=== PATIENT | female | born 1940 | race Caucasian/White ===

== ENCOUNTER 2019-01-26 10:04 | Emergency (ER) | payer OTHER ==
[2019-01-26 10:11] VITALS: BP 149/74; PULSE 65; TEMP 98; BMI 25.1
--- NOTE | 2019-01-26 11:03 | PDOC ---
History of Present Illness - General Chief Complaint: Injury Stated Complaint: LT LEG INJURY / POSSIBLE FALL Time Seen by Provider: 01/26/19 10:49 - History of Present Illness Initial Comments: 01/26/19 11:00 78-year-old female with a past medical history significant for hypertension reports the emergency room for left knee pain. She states she had a fall down some steps about 20 days ago since that time she's had consistent left knee pain. Past History - Past Medical History Allergies/Adverse Reactions: Allergies Allergy/AdvReac Type Severity Reaction Status Date / Time No Known Allergies Allergy Verified 01/26/19 10:10 Home Medications: Ambulatory Orders Losartan 50Mg/Hctz 12.5MG [Hyzaar] 1 tab PO DAILY 02/18/13 COPD: No HTN: Yes Hypercholesterolemia: Yes - Surgical History Appendectomy: Yes Cholecystectomy: Yes - Suicide/Smoking/Psychosocial Hx Smoking Status: No Smoking History: Never smoked Number of Cigarettes Smoked Daily: 0 Information on smoking cessation initiated: No Hx Alcohol Use: No Drug/Substance Use Hx: No Review of Systems - Review of Systems Musculoskeletal: Yes: Joint Pain *Physical Exam - Vital Signs Last Vital Signs Temp Pulse Resp BP Pulse Ox 98 F 65 17 149/74 97 01/26/19 10:07 01/26/19 10:07 01/26/19 10:07 01/26/19 10:07 01/26/19 10:07 - Physical Exam Comments: 01/26/19 11:02 Left knee skin color and temperature are normal. Range of motion 0-100. No intra -articular effusion. There is tenderness about the posterior lateral and anterior medial tibial plateau no evidence of instability or gross sensorimotor deficits. Thighs and calves are soft and nontender. Full ankle and hip range of motion she is neurovascularly intact free of any gross sensorimotor deficits. ED Treatment Course - RADIOLOGY Radiology Studies Ordered: Category Date Time Status KNEE 4 POS-LEFT [RAD] Stat Radiology 01/26/19 10:59 Ordered Medical Decision Making - Medical Decision Making 01/26/19 11:41 X-rays of the left knee show no evidence of fracture trauma or destructive process. These are nonweightbearing x-rays. She may have osteoarthritis. This may be an exacerbation of osteoarthritis. I've offered her crutches she refused. I'll have her follow-up with orthopedic surgery discussed use of Tylenol for pain. *DC/Admit/Observation/Transfer Diagnosis at time of Disposition: Knee osteoarthritis - Discharge Dispostion Disposition: HOME Condition at time of disposition: Stable Decision to Admit order: No - Referrals Referrals: Basil Toledo [Primary Care Provider] - Xiang Garcia DO [Staff Physician] - - Patient Instructions Printed Discharge Instructions: Osteoarthritis, DI for Osteoarthritis Additional Instructions: You may weight-bear as tolerated. Return to the emergency room for worsening symptoms. Tylenol as directed for pain. Follow-up with orthopedic surgery in 1- 2 days for further evaluation and treatment options. - Post Discharge Activity
== END 2019-01-26 11:54 | disposition home or self-care (01) ==
LOC: JERFT 10:04
DX: M17.12 Unilateral primary osteoarthritis, left knee (principal); W10.9XXA Fall (on) (from) unspecified stairs and steps, initial encounter; Y93.89 Activity, other specified; Y92.89 Other specified places as the place of occurrence of the external cause; I10 Essential (primary) hypertension
CPT/HCPCS: 73564-TC-LT-FY; 99281-25